=== PATIENT | female | born 1950 | race Caucasian/White ===

== ENCOUNTER → 2016-08-27 | Outpatient (CLI) | payer OTHER, BC ==
[~2016-08-27] MED LIST: ATR25 PO; RSTOPS OP; WARF2TAB PO
--- NOTE | 2016-08-27 14:28 | DIAGNOSTIC IMAGING REPORT ---
LEFT PELVIS UNILATERAL HIP 1 VIEW CLINICAL HISTORY: LEFT HIP PAIN S/P hip arthroplasty. COMPARISON STUDY: Pelvis and bilateral hips 11/18/2015. FINDINGS: Bilateral total hip arthroplasties. The hardware appears intact. A 6 mm focus of mild osteolysis within the mid left acetabulum. No fracture or dislocation within the pelvis or hips. IMPRESSION: 1. No fracture or dislocation within the pelvis or hips. 2. A 6 mm focus of mild osteolysis within the mid left acetabulum. This is new from the prior study and could represent foreign body reaction. Electronically signed by: Wagner Lai M.D. 08/27/2016 2:27 PM Dictated Date/Time: 08/27/2016 2:24 PM
== END ==
LOC: C.RDSM 14:09
PROVIDERS: ATTEND Physician Assistant
DX: Z47.1 Aftercare following joint replacement surgery (principal); Z96.642 Presence of left artificial hip joint

== ENCOUNTER → 2016-12-24 | Outpatient (CLI) | payer OTHER, BC ==
--- NOTE | 2016-12-24 15:58 | MAMMOGRAPHY REPORT ---
BILATERAL DIGITAL SCREENING MAMMOGRAM TOMOSYNTHESIS WITH CAD: 12/24/2016 CLINICAL HISTORY: Routine screening. TECHNIQUE: Breast tomosynthesis in addition to standard 2D mammography was performed. Current study was also evaluated with a Computer Aided Detection (CAD) system. COMPARISON: Comparison is made to exams dated: 12/24/2015 mammogram, 12/20/2014 mammogram, 12/06/2013 ma mmogram, 09/04/2009 mammogram - [facility], 09/21/2007, and 08/19/2006 mammogram - [facility]. BREAST COMPOSITION: The tissue of both breasts is heterogeneously dense, which may obscure small mas ses. FINDINGS: No suspicious masses, calcifications, or areas of architectural distortion are noted in ei ther breast. There has been no significant interval change compared to prior exams. Scattered bilater al benign-appearing calcifications are not significantly changed. IMPRESSION: ACR BI-RADS CATEGORY 2: BENIGN There is no mammographic evidence of malignancy. A 1 year screening mammogram is recommended. The pa tient will receive written notification of the results. Approximately 10% of breast cancers are not detected with mammography. A negative mammographic report should not delay biopsy if a clinically suggestive mass is present. Safia Mercedes M.D. ah/:12/24/2016 14:54:29 Workers Compensation Examiner: Keegan MOORE)([place]), [facility] letter sent: Normal 1/2 BI-RADS Code: ACR BI-RADS Category 2: Benign
== END | disposition home or self-care (01) ==
LOC: C.MAMM 10:30
PROVIDERS: ATTEND Family Medicine
DX: Z12.31 Encounter for screening mammogram for malignant neoplasm of breast (principal)

== ENCOUNTER → 2017-08-04 | Day surgery (SDC) | payer OTHER, BC ==
[2017-07-28 12:12] VITALS: Ht 165.1 cm; Wt 61.4 kg
[~2017-08-04] VITALS: Ht 165.1 cm; Wt 61.4 kg
[~2017-08-04] MED LIST changes: -ATR25 PO; +CYCL0.052 OP; +DIPH1TAB87 PO; +LIDOCAINE HCL 2% 2 ML VIAL (20MG/ML) ONE; +PROPOFOL IV EMULSION 10 MG/ML 20 ML VIAL ONE; -RSTOPS OP; -WARF2TAB PO
--- NOTE | 2017-08-04 13:13 | Endo History and Physical ---
History & Physical Date of Service: August 04, 2017. Chief Complaint: screening Referring Physician: Shell Kinney History of Present Illness 66 yo CF who presents for screening colonoscopy. Past Surgical History Hx Cardiac Surgery: No Hx Internal Defibrillator: No Hx Pacemaker: No Hx Abdominal Surgery: Yes (HYSTERECTOMY R OVARY) Hx of Implantable Prosthesis: No Hx Post-Op Nausea and Vomiting: Yes Hx Cancer Surgery: No Hx Thoracic Surgery: No Hx Orthopedic: Yes (R TSA, R/L THR -2011 [facility]) Hx Urinary Tract Surgery: No Family History None Social History Smoking Status: Former Smoker Hx Substance Use: No Hx Alcohol Use: Yes (1 BEER OR SCOTCH DAILY) Allergies Coded Allergies: Morphine (Verified Allergy, Severe, nausea/severe sedation/resp distress vs. arrest, 07/28/17) POLLEN (Verified Allergy, Unknown, ITCHY EYES EARS, 07/28/17) Codeine (Verified Adverse Reaction, Intermediate, NAUSEA, 07/28/17) Tramadol (Verified Adverse Reaction, Intermediate, NAUSEA SOMETIMES, ) Erythromycin (Verified Adverse Reaction, Unknown, INSOMNIA HYPER, 07/28/17) Penicillins (Verified Adverse Reaction, Unknown, VAGINITIS, 07/28/17) Current Medications Reported Home Medications Medications Dose Route/Sig Max Daily Dose Days Date Category Benadryl Allergy (Diphenhydramine Hcl) 25 Mg Tab 1 Tab PO BID PRN 07/28/17 Reported Restasis (Cyclosporine (Ophth)) 0.05 % Emu 1 Drops OP BID 30 07/28/17 Reported Vital Signs Weight (Kilograms): 61.36 Height (Feet): 5 Height (Inches): 5 Date Time Temp Pulse Resp B/P (MAP) Pulse Ox O2 Delivery O2 Flow Rate FiO2 08/04/17 13:04 36.4 87 20 120/73 (89) 97 Room Air Physical Exam General Appearance: WD/WN, no apparent distress Respiratory/Chest: Auscultation: breath sounds normal Cardiovascular: Heart Auscultation: RRR Abdomen: Bowel Sounds: normal Inspection & Palpation: soft, non-distended, no tenderness, guarding & rebound Assessment and Plan Assessment: 66 yo CF who presents for screening colonoscopy. Plan: Proceed with colonoscopy.
--- NOTE | 2017-08-04 14:06 | Discharge Instructions ---
Endoscopy Patient Instructions Date / Procedure(s) Performed August 04, 2017. Colonoscopy Allergy Information Coded Allergies: Morphine (Verified Allergy, Severe, nausea/severe sedation/resp distress vs. arrest, 07/28/17) POLLEN (Verified Allergy, Unknown, ITCHY EYES EARS, 07/28/17) Codeine (Verified Adverse Reaction, Intermediate, NAUSEA, 07/28/17) Tramadol (Verified Adverse Reaction, Intermediate, NAUSEA SOMETIMES, ) Erythromycin (Verified Adverse Reaction, Unknown, INSOMNIA HYPER, 07/28/17) Penicillins (Verified Adverse Reaction, Unknown, VAGINITIS, 07/28/17) Discharge Date / Findings August 04, 2017. Sigmoid colon polyp Diverticulosis Internal hemorrhoids Medication Instructions OK to resume all medications today as prescribed Reported Home Medications Medications Dose Route/Sig Max Daily Dose Days Date Category Benadryl Allergy (Diphenhydramine Hcl) 25 Mg Tab 1 Tab PO BID PRN 07/28/17 Reported Restasis (Cyclosporine (Ophth)) 0.05 % Emu 1 Drops OP BID 30 07/28/17 Reported Provider Instructions Activity Restrictions - No exercising or heavy lifting for 24 hours. - Do not drink alcohol the day of the procedure. - Do not drive a car or operate machinery until the day after the procedure. - Do not make any important decisions or sign important papers in 24 hours after the procedure. Following Day: - Return to full activity which may include returning to work/school. Diet Start your diet with liquids and light foods (jello, soup, juice, toast). Then eat your usual diet if not nauseated. Treatment For Common After Affects For mild abdominal pain, bloating, or excessive gas: - Rest - Eat lightly - Lie on right side Follow-Up Information Follow-up with Shell Kinney as scheduled Anesthesia Information What You Should Know You have had a procedure that required some medicine to reduce anxiety and discomfort. This treatment is called moderate sedation. After receiving the treatment, you may be sleepy, but you will be able to breathe on your own. The effects of the treatment may last for several hours. Follow these instructions along with Activity/Diet recommendations noted above: * Do NOT do anything where dizziness or clumsiness would be dangerous. * Rest quietly at home today, then you can be up and about tomorrow. * Have a responsible person stay with you the rest of today. * You may have had an I.V. today. If so, you may take the dressing off later today. Recommendations Call your doctor if: * Trouble breathing * Continuous vomiting for more than 24 hours * Temperature above 101 degrees * Severe abdominal pain or bloating * Pain not relieved by pain medicine ordered * There is increased drainage or redness from any incision * A large amount of rectal bleeding greater than 2-3 tablespoons. (If you had a polyp/s removed or have hemorrhoids, a small amount of blood - from the rectum is to be expected.) * You have any unanswered questions or concerns. IN THE EVENT OF A SERIOUS EMERGENCY, GO TO THE NEAREST EMERGENCY ROOM Your discharge instructions were prepared by provider Александр Montoya. Patient Instructions Signature Page Munira Whiting Patient (or Guardian) Signature/Date: I have read and understand the instructions given to me by my caregivers. Caregiver/RN/Doctor Signature/Date: The above-named patient and/or guardian has received patient instructions on this date. + Original Patient Signature Page (only) stays with chart. Please make copy for patient.
--- NOTE | 2017-08-04 14:17 | GI REPORT ---
Patient Name: Munira Whiting Procedure Date: 08/04/2017 1:22 PM Date of : 1950 Admit Type: Outpatient Age: 66 Gender: Female Attending MD: Александр Montoya DO Procedure: Colonoscopy Providers: Александр Montoya DO Referring MD: Shell Kinney Indications: Screening for colorectal malignant neoplasm Medicines: Monitored Anesthesia Care Complications: No immediate complications. Estimated Blood Loss: Estimated blood loss: none. Procedure: Pre-Anesthesia Assessment: - Prior to the procedure, a History and Physical was performed, and patient medications and allergies were reviewed. The patient's tolerance of previous anesthesia was also reviewed. The risks and benefits of the procedure and the sedation options and risks were discussed with the patient. All questions were answered, and informed consent was obtained. Prior Anticoagulants: The patient has taken no previous anticoagulant or antiplatelet agents. ASA Grade Assessment: II - A patient with mild systemic disease. After reviewing the risks and benefits, the patient was deemed in satisfactory condition to undergo the procedure. After I obtained informed consent, the scope was passed under direct vision. Throughout the procedure, the patient's blood pressure, pulse, and oxygen saturations were monitored continuously. The scope was introduced through the anus and advanced to the terminal ileum. The colonoscopy was performed without difficulty. The patient tolerated the procedure well. The quality of the bowel preparation was good. The terminal ileum, ileocecal valve, appendiceal orifice, and rectum were photographed. Findings: The perianal and digital rectal examinations were normal. A 5 mm polyp was found in the sigmoid colon. The polyp was sessile. The polyp was removed with a hot snare. Resection and retrieval were complete. Multiple small-mouthed diverticula were found in the sigmoid colon. Non-bleeding internal hemorrhoids were found during retroflexion. The hemorrhoids were small. Impression: - One 5 mm polyp in the sigmoid colon, removed with a hot snare. Resected and retrieved. - Diverticulosis in the sigmoid colon. - Non-bleeding internal hemorrhoids. Recommendation: - Resume previous diet. - Continue present medications. - Repeat colonoscopy for surveillance based on pathology results. - Return to primary care physician as previously scheduled. Александр Montoya DO 08/04/2017 2:16:57 PM This report has been signed electronically. Note Initiated On: 08/04/2017 1:22 PM Number of Addenda: 0 I attest to the content of the Intraoperative Record and orders documented therein, exceptions below {[id number]}
--- NOTE | 2017-08-04 14:28 | Anesthesiology Progress Note ---
Anesthesia Post Op Note Date & Time August 04, 2017 at 14:27 Vital Signs Vital Signs Past 12 Hours Date Time Temp Pulse Resp B/P (MAP) Pulse Ox O2 Delivery O2 Flow Rate FiO2 08/04/17 13:04 36.4 87 20 120/73 (89) 97 Room Air Notes Mental Status: alert / awake / arousable, participated in evaluation Pt Amnestic to Procedure: Yes Nausea / Vomiting: adequately controlled Pain: adequately controlled Airway Patency, RR, SpO2: stable & adequate BP & HR: stable & adequate Hydration State: stable & adequate Anesthetic Complications: no major complications apparent The patient is awake and her vitals are stable in recovery.
[2017-08-04 14:40] VITALS: BP 160/82; PULSE 79; O2SAT 98
== END | disposition home or self-care (01) ==
LOC: C.GI 12:42
PROVIDERS: ATTEND Internal Medicine
DX: Z12.11 Encounter for screening for malignant neoplasm of colon (principal); D12.5 Benign neoplasm of sigmoid colon; K57.30 Diverticulosis of large intestine without perforation or abscess without bleeding; K64.8 Other hemorrhoids; M19.90 Unspecified osteoarthritis, unspecified site; Z88.5 Allergy status to narcotic agent; Z88.0 Allergy status to penicillin; Z90.710 Acquired absence of both cervix and uterus; Z90.721 Acquired absence of ovaries, unilateral; Z96.641 Presence of right artificial hip joint; Z87.891 Personal history of nicotine dependence

== ENCOUNTER 2024-11-03 11:47 | Inpatient (IN) ==
[2024-11-03 13:45] LABS: Hematocrit (blood only) 37.2 % (37.0-47.0); Hemoglobin 13.2 g/dl (12.0-16.0); Immature Granulocytes # (auto) 0.08 K/uL (0.01-0.20); Immature Granulocytes % (auto) 0.8 %; Mean Corpuscular Hemoglobin 31.3 pg (25.0-34.0); Mean Corpuscular Volume 88.2 fL (80.0-100.0); Platelet Count 391 K/uL (130-400); RDW Standard Deviation 43.5 fL (36.4-46.3); Red Blood Count 4.22 M/uL (4.20-5.40); White Blood Count 10.07 K/ul (4.8-10.8)
[2024-11-03 14:04] LABS: Anion Gap 7.0 (3-11); Blood Urea Nitrogen 17.0 mg/dl (6-23); Calcium 9.5 mg/dl (8.6-10.3); Carbon Dioxide 28.0 mmol/L (21-32); Chloride 97.0 mmol/L (98-107); Creatinine Clr Calc Pharmacy 67.5 ml/min; Glucose 114.0 mg/dl (70-99(Fasting)); Potassium 4.0 mmol/L (3.5-5.1); Sodium 132.0 mmol/L (136-145)
--- NOTE | 2024-11-03 14:07 | XRay Report ---
XR hip LT 2V w pelvis CLINICAL HISTORY: previous pelvic fx, new L hip pain COMPARISON: 10/10/2024 FINDINGS: There is increased displacement at the right pubic rami fractures. No other fracture or di slocation seen. Prosthesis show no IMPRESSION: Increased displacement at the right pubic fractures. ACT 112: Negative or not required by law. Electronically signed by: William Taylor M.D. 11/03/2024 2:06 PM
--- NOTE | 2024-11-03 14:45 | Emergency Department Note ---
Impression & Plan Hip pain, Left hip pain, Back pain ED Provider Note NAME: AGNES GA AGE: 73 SEX: F : 1950 ARRIVES VIA: Ambulance INFORMANT: Patient, ED PROVIDER(S): Marcus Gandhi MD CHIEF COMPLAINT: Left hip pain HPI: This is a 73-year-old female seen for left hip pain. Patient states that she had a fall about 1 month ago and had a right pelvic fracture. She notes she started doing physical therapy and had more left-sided pain at this time. It was somewhat into her back going down her leg. She had seen orthopedic surgery again who ordered lumbar x-rays and started on prednisone, tramadol and cyclobenzaprine. She was diagnosed with sciatica. She states her pain is worse and she is having trouble walking. She reports no further falls. ROS: See above HPI for pertinent positives & negatives. A total of 10 systems reviewed and were otherwise negative. PAST MEDICAL HISTORY: See Below PAST SURGICAL HISTORY: See Below FAMILY HISTORY: See Below SOCIAL HISTORY: See Below HOME MEDICATIONS: See Below ALLERGIES: See Below VITALS: See Below PHYSICAL EXAMINATION: General: resting comfortably in no acute distress Head: Normocephalic and atraumatic Eyes: Normal inspection, extraocular muscles intact Ear, nose, throat: Normal external exam Neck: Normal range of motion Respiratory: lungs clear to auscultation bilaterally Cardiovascular: Regular rate/rhythm, no murmur GI: soft, nontender, no guarding or rebound Extremities: nontender, moves all extremities Neuro: The patient awake and alert, appropriately conversive, no focal deficits, symmetric faces Skin: Warm, dry, and intact MEDICAL DECISION MAKING: This is a 73-year-old female present for left hip pain. Patient has previous fall with right pelvic fracture, now with left-sided hip pain. Right pelvis/hip is a asymptomatic at this time. - Hip x-ray reveals increased displacement of right pubic fractures - Patient diagnosed with sciatica by orthopedic surgery. Having difficulty walking as result of this. No signs of cauda equina clinically. No saddle anesthesia, motor weakness, urinary or bowel incontinence. - At this patient patient have difficulty walking, lives alone and has two-story to her house. Will admit the patient for further SNF facility. - Care discussed with admitting team for admission Differential diagnosis: Sciatica, cauda equina, pelvic fracture, hip fracture Independent History obtained from: Sister [facility] interpreted by me: ECG: None Cardiac Monitoring: An order was placed for continuous cardiac monitoring. The monitor shows a rate of 83 with sinus rhythm. Past Med/Surg History Problem List (Updated 11/03/24 @ 19:57 by Marcus Gandhi MD) Back pain (Acute) Hip pain (Acute) Hypertension Anxiety Left hip pain (Acute) DJD (degenerative joint disease) of hip Social History Smoking Status: Unknown if ever smoked Preferred Language: Urdu Feels Safe at Home: Yes Allergies Allergies Allergy/AdvReac Type Severity Reaction Status Date / Time morphine Allergy Severe nausea/severe Verified 07/28/17 12:10 sedation/resp distress vs. arrest pollen extracts Allergy Unknown ITCHY EYES Verified 07/28/17 12:10 EARS codeine AdvReac Intermediate NAUSEA Verified 07/28/17 12:10 tramadol AdvReac Intermediate NAUSEA Verified 07/28/17 12:10 SOMETIMES erythromycin base AdvReac Unknown INSOMNIA Verified 07/28/17 12:10 HYPER Penicillins AdvReac Unknown VAGINITIS Verified 07/28/17 12:10 Home Meds Home Medications Medication Instructions Recorded Confirmed diphenhydramine HCl 25 mg tablet 1 tab PO BID PRN Other ##0 07/28/17 11/03/24 (Benadryl Allergy) [place] 3 2,400 mcg PO DAILY 11/03/24 11/03/24 atorvastatin 20 mg tablet 20 mg PO DAILY 11/03/24 11/03/24 buspirone 10 mg tablet 10 mg PO BID PRN Anxiety 11/03/24 11/03/24 cholecalciferol (vitamin D3) 50 50 mcg PO DAILY 11/03/24 11/03/24 mcg (2,000 unit) tablet (Vitamin D3) cyclobenzaprine 5 mg tablet 5 mg PO TID PRN Muscle Spasm 11/03/24 11/03/24 hydroxyzine HCl 25 mg tablet 25 mg PO .Q6-8H PRN Other 11/03/24 11/03/24 ibuprofen 200 mg tablet (Advil) 200 mg PO Q6H PRN Pain 11/03/24 11/03/24 losartan 50 mg tablet 50 mg PO DAILY 11/03/24 11/03/24 magnesium 250 mg tablet 250 mg PO DAILY 08/01/25 08/01/25 methylprednisolone 4 mg tablets in 4 mg PO DIRECTED 11/03/24 11/03/24 a dose pack tolterodine 2 mg capsule,extended 2 mg PO DAILY 11/03/24 11/03/24 release 24 hr tramadol 50 mg tablet 50 mg PO Q4H PRN Pain 11/03/24 11/03/24 Results & Data (ED) Vital Signs Vital Signs - 24 hr 11/03/24 12:22 11/03/24 12:22 11/03/24 12:22 Temperature 36.7 C Temperature Source Oral Pulse Rate 98 H Pulse Rate [Right Finger] 98 H Pulse Rhythm Regular Pulse Rhythm [Right Finger] Regular Pulse Strength Normal Pulse Strength [Right Finger] Normal Respiratory Rate 13 13 Respiratory Effort / Characteristics Non-Labored Non-Labored Respiratory Depth Normal Normal Respiratory Pattern Regular Regular Blood Pressure 171/110 H Blood Pressure [Right Arm] 171/110 H Blood Pressure Mean 130 Blood Pressure Mean [Right Arm] 130 Blood Pressure Position Lying Blood Pressure Position [Right Arm] Lying Pulse Oximetry 93 93 93 Oxygen Delivery Method Room Air Room Air Room Air Sepsis Recent Fever Within 48 Hours No Sepsis New/Unexplained Change in Mental Status N/A Sepsis Action Taken by Nursing No Action Required 11/03/24 12:22 11/03/24 14:23 11/03/24 16:17 Temperature Temperature Source Pulse Rate 89 Pulse Rate [Right Finger] 90 88 Pulse Rhythm Pulse Rhythm [Right Finger] Regular Regular Pulse Strength Pulse Strength [Right Finger] Normal Normal Respiratory Rate 16 16 Respiratory Effort / Characteristics Non-Labored Non-Labored Respiratory Depth Normal Normal Respiratory Pattern Regular Regular Blood Pressure Blood Pressure [Right Arm] 167/99 H 142/98 H Blood Pressure Mean Blood Pressure Mean [Right Arm] 121 112 Blood Pressure Position Blood Pressure Position [Right Arm] Lying Pulse Oximetry 95 97 Oxygen Delivery Method Room Air Room Air Sepsis Recent Fever Within 48 Hours Sepsis New/Unexplained Change in Mental Status Sepsis Action Taken by Nursing 11/03/24 16:23 Temperature Temperature Source Pulse Rate 105 H Pulse Rate [Right Finger] Pulse Rhythm Pulse Rhythm [Right Finger] Pulse Strength Pulse Strength [Right Finger] Respiratory Rate Respiratory Effort / Characteristics Respiratory Depth Respiratory Pattern Blood Pressure Blood Pressure [Right Arm] Blood Pressure Mean Blood Pressure Mean [Right Arm] Blood Pressure Position Blood Pressure Position [Right Arm] Pulse Oximetry Oxygen Delivery Method Sepsis Recent Fever Within 48 Hours Sepsis New/Unexplained Change in Mental Status Sepsis Action Taken by Nursing Laboratory Data 11/03/24 13:24 11/03/24 13:24 Lab Results 11/03/24 Range/Units 13:24 WBC 10.07 (4.8-10.8) K/ul RBC 4.22 (4.20-5.40) M/uL Hgb 13.2 (12.0-16.0) g/dl Hct 37.2 (37.0-47.0) % MCV 88.2 (80.0-100.0) fL MCH 31.3 (25.0-34.0) pg MCHC 35.5 (32.0-36.0) g/dL RDW Std Deviation 43.5 (36.4-46.3) fL RDW Coeff of Kim 13.4 (11.5-14.5) % Plt Count 391 (130-400) K/uL MPV 9.2 L (9.4-12.4) fL Immature Gran % (Auto) 0.8 % Neut % (Auto) 89.9 % Lymph % (Auto) 6.8 % Morrill % (Auto) 2.2 % Eos % (Auto) 0.0 % Baso % (Auto) 0.3 % Neut # (Auto) 9.06 H (1.40-6.50) K/uL Lymph # (Auto) 0.68 L (1.20-3.40) K/uL Morrill # (Auto) 0.22 (0.11-0.59) K/uL Eos # (Auto) 0.00 (0.00-0.50) K/uL Baso # (Auto) 0.03 (0.00-0.20) K/uL Immature Gran # (Auto) 0.08 (0.01-0.20) K/uL Sodium 132 L (136-145) mmol/L Potassium 4.0 (3.5-5.1) mmol/L Chloride 97 L (98-107) mmol/L Carbon Dioxide 28 (21-32) mmol/L Anion Gap 7 (3-11) BUN 17 (6-23) mg/dl Creatinine 0.68 (0.6-1.2) mg/dl Est Cr Clr Drug Dosing 67.5 ml/min eGFR 91.33 BUN/Creatinine Ratio 25.0 H (10-20) Glucose 114 H (70-99(Fasting)) mg/dl Calcium 9.5 (8.6-10.3) mg/dl Imaging Data Radiologist's Impression: Hip/Pelvis X-Ray 11/03/24 12:43 XR hip LT 2V w pelvis CLINICAL HISTORY: previous pelvic fx, new L hip pain COMPARISON: 10/10/2024 FINDINGS: There is increased displacement at the right pubic rami fractures. No other fracture or dislocation seen. Prosthesis show no IMPRESSION: Increased displacement at the right pubic fractures. ACT 112: Negative or not required by law. Electronically signed by: William Taylor M.D. 11/03/2024 2:06 PM Discharge Plan Visit Data Chief Complaint: Hip Pain Stated Complaint: L HIP PAIN ED Provider: Marcus Gandhi Discharge Problem: Hip pain, Left hip pain, Back pain Patient Disposition: Admitted As Inpatient Condition: Fair Discharge Instructions Interventions: ED Discharge Assessment Last Done: 11/03/24 19:50
--- NOTE | 2024-11-03 16:28 | History & Physical Report ---
Date of Service November 03, 2024 Assessment & Plan (1) Left hip pain: (2) Anxiety: (3) Hypertension: Plan Pt is a very pleasant 73 yo female with a past med hx of fall 1 mo ago with R pelvis fracture managed conservatively, HTN, and anxiety who presents to the hospital on 11/03 for L hip pain making ambulation at home progressively more difficult. #L hip pain - has R pelvis fracture, notably more displaced on XR on admission but ER consulted ortho who had no further recs for this at this time, but not having much in terms of R hip discomfort other than when against opposed flexion - distribution of pain today lateral leg seems possibly more consistent with IT band, will defer further steriods at this time since pt did not find them helpful, will do topical Voltaren to the area scheduled - will tighten pain control; tylenol 1000mg scheduled TID, ibuprofen 600mg QID - will do opioids for breakthrough pain; will start at 2.5 mg oxycodone q4h to start given hx of intolerances to other opioids, can titrate up as tolerated by the patient for pain control - PT/OT #Anxiety; continue home meds #HTN: continue home meds VTE ppx: lovenox History of Present Illness Chief Complaint: L hip pain Primary Care Provider: Shell Kinney Pt is a very pleasant 73 yo female with a past med hx of fall 1 mo ago with R pelvis fracture managed conservatively, HTN, and anxiety who presents to the hospital on 11/03 for L hip pain making ambulation at home progressively more difficult. Pt seen at bedside with family member present. Pt states that 4 weeks ago she sustained a R pelvis fracture after a fall when she was out with her dog and another dog came up behind them and tripped them. No LOC with that episode, no presyncopal symptoms. Pt states she really had minimal if any R hip pain with the injury and so it was being treated conservatively. She states that she started with PT about a week and a half ago and about 5 days after started to develop L hip pain, particularly when getting up from sitting or with hip flexion. She states she was given tramadol, which helped for 2-3 hours when kirsten en with ibuprofen, prednisone which did not help, and Flexeril which did not provide relief for her. She states that she lives alone and does have stairs but that most things she needs are on the first floor, although she states she has actually done better with stairs than with walking around. Pt states that the pain is outer L hip and extends down to her outer left knee at times, no radiation into the buttock or back per pt today. No further falls, here due to continued issues with mobility due to persistent L hip pain. Allergies Allergy/AdvReac Type Severity Reaction Status Date / Time morphine Allergy Severe nausea/severe Verified 07/28/17 12:10 sedation/resp distress vs. arrest pollen extracts Allergy Unknown ITCHY EYES Verified 07/28/17 12:10 EARS codeine AdvReac Intermediate NAUSEA Verified 07/28/17 12:10 tramadol AdvReac Intermediate NAUSEA Verified 07/28/17 12:10 SOMETIMES erythromycin base AdvReac Unknown INSOMNIA Verified 07/28/17 12:10 HYPER Penicillins AdvReac Unknown VAGINITIS Verified 07/28/17 12:10 Home Medications Medication Instructions Recorded Confirmed Type diphenhydramine HCl 25 mg tablet 1 tab PO BID PRN Other ##0 07/28/17 11/03/24 History (Benadryl Allergy) Palmer 3 2,400 mcg PO DAILY 11/03/24 11/03/24 History atorvastatin 20 mg tablet 20 mg PO DAILY 11/03/24 11/03/24 History buspirone 10 mg tablet 10 mg PO BID PRN Anxiety 11/03/24 11/03/24 History cholecalciferol (vitamin D3) 50 50 mcg PO DAILY 11/03/24 11/03/24 History mcg (2,000 unit) tablet (Vitamin D3) cyclobenzaprine 5 mg tablet 5 mg PO TID PRN Muscle Spasm 11/03/24 11/03/24 History hydroxyzine HCl 25 mg tablet 25 mg PO .Q6-8H PRN Other 11/03/24 11/03/24 History ibuprofen 200 mg tablet (Advil) 200 mg PO Q6H PRN Pain 11/03/24 11/03/24 History losartan 50 mg tablet 50 mg PO DAILY 11/03/24 11/03/24 History magnesium 250 mg tablet 250 mg PO DAILY 11/03/24 11/03/24 History methylprednisolone 4 mg tablets in 4 mg PO DIRECTED 11/03/24 11/03/24 History a dose pack tolterodine 2 mg capsule,extended 2 mg PO DAILY 11/03/24 11/03/24 History release 24 hr tramadol 50 mg tablet 50 mg PO Q4H PRN Pain 11/03/24 11/03/24 History Past Med/Surg History Problem List (Updated 11/03/24 @ 16:57 by Zayra Michelle DO) Hypertension Anxiety Left hip pain DJD (degenerative joint disease) of hip Social History Smoking Status: Unknown if ever smoked Preferred Language: Chinese Feels Safe at Home: Yes Review of Systems Review of Systems: Per HPI. Physical Exam Physical Exam: General: Alert and oriented, very pleasant, no acute distress, HEENT: Normocephalic, moist oral mucosa, Cardio: Regular rate and rhythm, Resp: Lungs clear to auscultation b/l, no wheezes or rhonchi, GI: Soft and nontender Skin: Warm, pink, dry, Ext: some mild outer R hip pain noted with R hip flexion, profound L hip pain with opposed L hip flexion Results & Data Results & Data Vital Signs (Past 12 Hours) Vital Signs Temp Pulse Pulse Resp BP BP Pulse Ox 11/03/24 16:23 105 H 11/03/24 16:17 88 16 142/98 H 97 11/03/24 14:23 90 16 167/99 H 95 11/03/24 12:22 89 11/03/24 12:22 93 11/03/24 12:22 98 H 13 171/110 H 93 11/03/24 12:22 36.7 C 98 H 13 171/110 H 93 O2 Del Method 11/03/24 16:23 11/03/24 16:17 Room Air 11/03/24 14:23 Room Air 11/03/24 12:22 11/03/24 12:22 Room Air 11/03/24 12:22 Room Air 11/03/24 12:22 Room Air Supervising Physician Co-Signing Physician Notes I personally examined the patient and verified all mead points of history and exam, discussed case, and agree with decision making with Dr Michelle pelvic fracture - was doing OK at home - but while pelvic fracture was on the R, now L hip pain - lateral and then down back of leg some. pain got to be too much to walk well / care for herself at home vitals noted nad heent nc at mmm breathing unlabored no accessory muscles good effort skin no rashes no pallor or icterus. msk (+) tenderness posterior to L greater trochanter/region of piriformis high tone/tender hip pain/back pain -muscular - piriformis focused. almost certainly due to compensated for "bad side" as she's recovering from pelvic fracture -could not really comfortably move well - deferred OMT for today, hopefully can treat tomorrow -voltaren gel to piriformis region QID -mag 4g IV as muscle relaxant -pain control as above -PT/OT eval and treat otherwise as above Resident Activity Tracking Resident Involvement: Resident Care Provided Care Provided: Adult Hospital Medicine
--- NOTE | 2024-11-03 17:14 | Billing Data ---
Date of Service November 03, 2024 Coding Level of Care Code 76321 INT INP/OBS CARE
[2024-11-03] MEDS ORDERED: ONDANSETRON INJ 2 MG/ML 2 ML VIAL IV PRN (19:50)
[2024-11-03] MEDS ORDERED: POLYETHYLENE (MIRALAX) 17 GM PACK PO PRN (19:50)
[2024-11-03] MEDS: ACETAMINOPHEN 500 MG TAB PO SCH (20:37)
[2024-11-03] MEDS: IBUPROFEN 600 MG TAB PO SCH (20:38)
[2024-11-03] MEDS: DICLOFENAC SOD 1% GEL 100 GM TUBE EXT SCH (20:38)
[2024-11-03 20:55] LABS: Magnesium 2.4 mg/dl (1.7-2.4)
[2024-11-03] MEDS: MAGNESIUM SULFATE / D5W 1 GM/100 ML BAG IV SCH (23:57)
[2024-11-03] MEDS: ENOXAPARIN INJ 40 MG/0.4 ML SYR SQ SCH (23:57)
[2024-11-04] MEDS: busPIRone 5 MG TAB PO PRN (07:35)
[2024-11-04] MEDS: OXYBUTYNIN CHLORIDE XL 5 MG TABCR PO SCH (07:35)
[2024-11-04] MEDS: ATORVASTATIN 20 MG TAB PO SCH (07:36)
[2024-11-04] MEDS: LOSARTAN POTASSIUM 50 MG TAB PO SCH (07:36)
--- NOTE | 2024-11-04 08:21 | Hospitalist Progress Note ---
Date of Service November 04, 2024 Assessment & Plan (1) Left hip pain: (2) Hyponatremia: (3) Anxiety: (4) Hypertension: (5) Constipation: Plan Pt is a very pleasant 73 yo female with a past med hx of fall 1 mo ago with R pelvis fracture managed conservatively, HTN, and anxiety who presents to the hospital on 11/03 for L hip pain making ambulation at home progressively more difficult. #L hip pain | ambulatory dysfunction Patient does have a known right pubic fracture from a fall on September 16 Hip and pelvic x-ray on arrival revealed increased displacement at the right pubic fracture ED consulted ortho on arrival who had no further recs for this at this time, but not having much in terms of R hip discomfort other than when resistance applied against a post flexion Distribution of pain lateral left leg; seems possibly more consistent with IT band Steroids deferred at this time since pt did not find them helpful Topical Voltaren gel to the area scheduled Pain control regimen as follows: Tylenol 1000mg scheduled TID Ibuprofen 600mg QID Opioids for breakthrough pain; will start at oxycodone 2.5 mg p.o. q4h to start given hx of intolerances to other opioids, can titrate up as tolerated by the patient for pain control PT/OT evaluations appreciated Awaiting evals; patient does report she is open to rehab if needed Fall precautions #Hyponatremia NA 131 on 11/04; patient is also hypochloremic Euvolemic on physical exam Suspect secondary to dehydration NSS 500 mL IV at 80mL/hr x 1 Trend BMP #Constipation Patient reports that has been too painful to sit on the toilet due to her left hip pain No BM in several days MiraLAX daily PRN Monitor for BMs #H/o right hip replacement | h/o left hip replacement Noted #Anxiety Continue hydroxyzine, buspirone PRN #HTN Continue losartan #Bladder spasms Normally on tolterodine Continue oxybutynin inpatient #HLD Continue atorvastatin Disposition: Continued stay on MedSurg pending PT/OT evaluations VTE ppx: Lovenox 40 mg SQ q24h Admission and Anticipated Discharge Date Admission Date: November 03, 2024 Supervising Physician Co-Signing Physician Notes Attending Attestation: Chart reviewed, care plan d/w GEOVANNY Chung. I agree w/ the mead components of his documentation. Consider more advanced imaging of the pelvis and/or L-spine if pain is refractory. Leroy Padgett MD Subjective Mrs. Whiting reports she enjoyed her breakfast this morning, but had difficulty sleeping last night as she was awoken every hour or so by hospital staff. She reports 0 out of 10 pain in her left hip while she is at rest. She only has reproducible pain when she sits up or tries to stand on her left leg. When she does this, she has pain shooting down her left hamstrings. She reports it is significantly painful to walk, especially in the mornings. Patient lives alone. She reports over the past week, she could not get out of bed on certain days. She has been taking 3 Advil tablets TID as well as 50 mg of tramadol daily for the pain, which does help at home. Additionally, she has not had a bowel movement in several days because it is "too painful" to sit on the toilet and her left hip. Patient denies any falls since her original fall back on September 16 when she tripped over her dog. After this original fall, she did not use ambulatory assist devices x 2 weeks, but then went into see her doctor and was diagnosed with a right pelvic fracture; since that time she has used a cane. Patient does have history of bilateral hip replacements. No recent injuries to her left hip. She is amenable to rehab if needed. ROS: Patient endorses constipation, and left hip pain with movements and standing. Patient denies fever, chills, night sweats, chest pain, SOB, cough, abdominal pain, N/V/D, numbness or tingling going down the legs, or changes in urinary habits. Review of Systems Review of Systems: See HPI above Physical Exam Physical Exam: General: no acute distress; pleasant affect; frail appearing; well-nourished; cooperative; SpO2 97% on RA HEENT: normocephalic, atraumatic; no scleral icterus; PERRLA; vision intact; hard of hearing (hearing aids reportedly out of battery) Neck: supple; no lymphadenopathy; trachea midline Skin: warm, dry without signs of tenting; no cyanosis; no rashes, bruising, lesions, or erythema noted CV: chest wall NTP; RRR; pulses intact and symmetric at radial, DP, and PT Lungs: no acute respiratory distress; symmetrical chest wall expansion; clear breath sounds across all lung alcala w/o adventitious sounds; no wheezing ABD: Soft, NTP; BS present; no rebound/guarding; no distention MSK: no tics or fasciculations; no edema noted in the LEs b/l, nonerythematous; left hamstrings are TTP/tight; no rashes or bruising appreciated on the left hip; straight leg lift in the left leg does produce mild pain in the back and hamstring; patient demonstrates ability to wiggle toes bilaterally Neuro: A&Ox3; normal mood and affect; fluent speech; no focal deficits; sensation intact and symmetric in lower extremities bilaterally assessed via light touch Results & Data Results & Data Vital Signs (Past 12 Hours) Vital Signs Temp Pulse Resp BP Pulse Ox O2 Del Method 11/04/24 07:16 36.6 C 69 16 137/80 97 Room Air 11/04/24 01:00 164/90 H 11/03/24 23:00 Room Air 11/03/24 23:00 36.8 C 81 18 191/100 H 94 Room Air 11/03/24 22:05 Room Air 11/03/24 22:00 78 18 171/92 H 97 Room Air PG Care Time/CCT Total # of Minutes Spent Total Time Spent with Patient: Total time spent is greater than 50% in coordination of care (as documented) at patient's floor/unit and/or counseling patient: [place] [address] SUB INP/OBS CARE 2/35MIN Patient Type New Medical Decision Making Moderate Complexity Diagnoses Left hip pain M25.552 Hyponatremia E87.1 Anxiety F41.9 Hypertension I10 Constipation K59.00
[2024-11-04 09:03] LABS: Hematocrit (blood only) 35.7 % (37.0-47.0); Hemoglobin 12.4 g/dl (12.0-16.0); Mean Corpuscular Hemoglobin 30.5 pg (25.0-34.0); Mean Corpuscular Volume 87.7 fL (80.0-100.0); Platelet Count 352 K/uL (130-400); RDW Standard Deviation 43.3 fL (36.4-46.3); Red Blood Count 4.07 M/uL (4.20-5.40); White Blood Count 5.96 K/ul (4.8-10.8)
[2024-11-04 09:19] LABS: Anion Gap 5.0 (3-11); Blood Urea Nitrogen 11.0 mg/dl (6-23); Calcium 8.7 mg/dl (8.6-10.3); Carbon Dioxide 30.0 mmol/L (21-32); Chloride 96.0 mmol/L (98-107); Creatinine Clr Calc Pharmacy 70.6 ml/min; Glucose 129.0 mg/dl (70-99(Fasting)); Potassium 3.7 mmol/L (3.5-5.1); Sodium 131.0 mmol/L (136-145)
[2024-11-04] MEDS: SODIUM CHLORIDE 0.9% 500 ML IV SCH (11:06)
[2024-11-04] MEDS: MAGNESIUM OXIDE 400 MG TAB PO SCH (11:13)
[2024-11-04] MEDS: MELATONIN 3 MG TAB PO PRN (21:10)
[2024-11-05 06:32] LABS: Anion Gap 6.0 (3-11); Blood Urea Nitrogen 12.0 mg/dl (6-23); Calcium 8.8 mg/dl (8.6-10.3); Carbon Dioxide 29.0 mmol/L (21-32); Chloride 99.0 mmol/L (98-107); Creatinine Clr Calc Pharmacy 70.6 ml/min; Glucose 98.0 mg/dl (70-99(Fasting)); Potassium 4.1 mmol/L (3.5-5.1); Sodium 134.0 mmol/L (136-145)
--- NOTE | 2024-11-05 08:16 | Hospitalist Progress Note ---
Date of Service November 05, 2024 Assessment & Plan (1) Left hip pain: (2) Hyponatremia: (3) Anxiety: (4) Hypertension: (5) Constipation: (6) Pubic bone fracture: Plan Pt is a very pleasant 73 yo female with a past med hx of fall 1 mo ago with R pelvis fracture managed conservatively, HTN, and anxiety who presents to the hospital on 11/03 for L hip pain making ambulation at home progressively more difficult. #L hip pain | ambulatory dysfunction | ? piriformis syndrome Patient does have a known right pubic fracture from a fall on September 16 Hip and pelvic x-ray on arrival revealed increased displacement at the right pubic fracture ED consulted ortho on arrival; no further recs at this time Not having much in terms of R hip discomfort other than when resistance applied against a post flexion Suspect this is an over-exertion injury, with patient compensating with her left leg Distribution of pain lateral left leg; seems possibly more consistent with IT band However, patient did exhibit "point tenderness" at the piriformis on arrival S/p magnesium sulfate x 4 g IV on 11/03 Additional magnesium sulfate 1 g IV x 1 on 11/05 Steroids deferred at this time since pt did not find them helpful Patient reported that her pain regimen was not working on 11/05; reports that tramadol was helping at home Ibuprofen 600 mg QID - discontinued Protonix 40 mg p.o. QAM for GI PPx Oxycodone 2.5 mg p.o. - discontinued; note: Patient reports poor reaction to them on the evening of 11/04 (confusion and insomnia) New pain regimen: Tylenol 1000mg p.o. scheduled TID Tramadol 50 mg p.o. scheduled TID Topical Voltaren gel application QID PT/OT evaluations appreciated PT initial eval on 11/04 - can not rec d/c until patient's pain is under control & she is able to get up and move around Fall precautions #Hyponatremia - improving Mild; Na trend 132 -> 134 S/p NSS 500 mL IV x 1 Clinically euvolemic on physical exam Monitor PRN #Constipation - resolved Patient reports that has been too painful to sit on the toilet due to her left hip pain BM reported on 11/05 MiraLAX daily PRN Monitor #H/o right hip replacement | h/o left hip replacement Noted #Anxiety | depression Continue hydroxyzine, buspirone PRN #HTN Continue losartan #Bladder spasms Normally on tolterodine Continue oxybutynin inpatient #HLD Continue atorvastatin Disposition: Continued stay on MedSurg VTE ppx: Lovenox 40 mg SQ q24h Admission and Anticipated Discharge Date Admission Date: November 03, 2024 Supervising Physician Co-Signing Physician Notes Attending Attestation: Chart reviewed, care plan d/w PA Wagner Chung. I agree w/ the maed components of his documentation with the following addition - -right pubic fractures Consider more advanced imaging of the pelvis and/or L-spine if pain is refractory. Check 25-OH vit D level. Leroy Padgett MD Subjective Mrs. Whiting reports she is feeling "depressed" this morning. She is struggling with the fact that she no longer has her independence. She also reports that she misses her dog (a yellow lab named Breanna); her friend Jose C is currently watching her dog, but she feels that Jose C will need to continue to care for Breanna after she leaves the hospital. Patient does not have any pain in her leg at rest, but is still having difficulty moving, and was unable to get out of bed yesterday. She did have a BM last night on the bedpan. However, she also had 1 episode of pain in her left hamstrings while trying to sleep around midnight, and was given oxycodone; this led to confusion overnight and insomnia (patient woke up at 4 AM). Patient denies any radicular symptoms; no numbness or tingli ng going down the legs; no lower back pain. ROS: Patient endorses left hamstring pain with movements. Patient denies fever, chills, night sweats, chest pain, SOB, cough, abdominal pain, N/V/D, or numbness or tingling in the legs. Review of Systems Review of Systems: See HPI above Physical Exam Physical Exam: General: Patient is feeling anxious/depressed this morning, and is crying in bed on arrival; sister at bedside; frail appearing; well-nourished; cooperative; SpO2 94% on RA HEENT: normocephalic, atraumatic; no scleral icterus; PERRLA; vision intact; hard of hearing Neck: supple; no lymphadenopathy; trachea midline Skin: warm, dry without signs of tenting; no cyanosis; no rashes, bruising, lesions, or erythema noted CV: chest wall NTP; RRR; pulses intact and symmetric at radial, DP, and PT Lungs: no acute respiratory distress; symmetrical chest wall expansion; clear breath sounds across all lung alcala w/o adventitious sounds; no wheezing ABD: Soft, NTP; BS present; no rebound/guarding; no distention Back: Upper spine NTP; lower spine/sacrum are NTP MSK: no tics or fasciculations; no edema noted in the LEs b/l, nonerythematous; left hamstrings are TTP/tight; piriformis/gluteal muscles are NTP; no rashes or bruising appreciated on the left hip; negative right straight leg lift; positive left leg straight lift with pain reproducible at the left hip; patient demonstrates ability to wiggle toes bilaterally; 4/5 plantar/dorsiflexion in the left foot, when compared to 5/5 plantar/dorsiflexion in the right foot Neuro: A&Ox3; normal mood and affect; fluent speech; no focal deficits; se nsation intact and symmetric in lower extremities bilaterally assessed via light touch Results & Data Results & Data Vital Signs (Past 12 Hours) Vital Signs Temp Pulse Resp BP Pulse Ox O2 Del Method 11/05/24 07:26 36.4 C L 67 17 153/88 H 94 Room Air 11/04/24 23:00 36.5 C 68 18 164/94 H 93 Room Air PG Care Time/CCT Total # of Minutes Spent Total Time Spent with Patient: Total time spent is greater than 50% in coordination of care (as documented) at patient's floor/unit and/or counseling patient: Coding [place] [address] SUB INP/OBS CARE 2/35MIN Patient Type Established Medical Decision Making Moderate Complexity Diagnoses Left hip pain M25.552 Hyponatremia E87.1 Anxiety F41.9 Hypertension I10 Constipation K59.00 Pubic bone fracture S32.509A
[2024-11-05] MEDS: MAGNESIUM SULFATE / D5W 1 GM/100 ML BAG IV ONE (11:34)
[2024-11-05] MEDS: busPIRone 5 MG TAB PO STA (11:34)
[2024-11-05] MEDS: CYCLOBENZAPRINE HCL 5 MG TAB PO PRN (17:00)
[2024-11-06 07:45] LABS: Anion Gap 4.0 (3-11); Blood Urea Nitrogen 15.0 mg/dl (6-23); Calcium 8.6 mg/dl (8.6-10.3); Carbon Dioxide 29.0 mmol/L (21-32); Chloride 101.0 mmol/L (98-107); Creatinine Clr Calc Pharmacy 71.7 ml/min; Glucose 93.0 mg/dl (70-99(Fasting)); Potassium 3.8 mmol/L (3.5-5.1); Sodium 134.0 mmol/L (136-145)
--- NOTE | 2024-11-06 10:56 | CT Scan Report ---
CT hip LT wo con HISTORY: 73 years-old Female left hip/pelvic pain acute left-sided hip and pelvic pain without repor micheal trauma. COMPARISON: CT pelvis of same day, pelvis and hip radiographs 11/03/2024 TECHNIQUE: Multiple axial CT images of the left hip were obtained without IV contrast. A dose lowerin g technique was used consistent with the principals of GIGI. FINDINGS: Demineralized appearance of the bones. Unremarkable appearance of the left hip arthroplasty without e vidence of hardware complication. No acute fracture or dislocation. No suspicious bone lesions. Nonsp ecific urinary bladder wall thickening. Moderate rectal fecal retention. No lymphadenopathy. Unremark able appearance of the musculature. Please refer to the same day CT pelvis for discussion of the righ t-sided pelvic ring fractures. Minimal cortical angulation of the inferior left pubic ramus is likely chronic. IMPRESSION: 1. No acute fracture or dislocation. 2. Unremarkable appearance of the left hip arthroplasty. ACT 112: Negative or not required by law. The above report was generated using voice recognition software. It may contain grammatical, syntax o r spelling errors. Electronically signed by: Yariel Fernandez M.D. 11/06/2024 10:54 AM
--- NOTE | 2024-11-06 13:40 | Hospitalist Progress Note ---
"Date of Service November 06, 2024 Assessment & Plan (1) Left hip pain: (2) Hyponatremia: (3) Anxiety: (4) Hypertension: (5) Constipation: (6) Pubic bone fracture: Plan Pt is a very pleasant 73 yo female with a past med hx of fall 1 mo ago with R pelvis fracture managed conservatively, HTN, and anxiety who presents to the hospital on 11/03 for L hip pain making ambulation at home progressively more difficult. #L hip pain | ambulatory dysfunction Patient does have a known right pubic fracture from a fall on September 16 Hip and pelvic x-ray on arrival revealed increased displacement at the right pubic fracture Left hip/pelvic CT: no acute fx or dislocation, unremarkable appearance of left hip arthroplasty. Currently on Tylenol 1000mg TID + Tramadol 50mg PO TID + Voltarent gel QID. PT/OT evaluations - unable to stand due to 10/10 pain. Steroids d/c since they were not helpful. Ibuprofen d/c since not helpful. Pain management consulted, appreciate recommendations. #Hyponatremia - improving Mild; Na trend 132 -> 134 S/p NSS 500 mL IV x 1 Clinically euvolemic on physical exam Monitor PRN #Constipation - resolved Patient reports that has been too painful to sit on the toilet due to her left hip pain BM reported on 11/05 MiraLAX daily PRN Monitor #H/o right hip replacement | h/o left hip replacement Noted #Anxiety | depression Continue hydroxyzine, buspirone PRN #HTN Continue losartan #Bladder spasms Normally on tolterodine Continue oxybutynin inpatient #HLD Continue atorvastatin Disposition: Continued stay on MedSurg VTE ppx: Lovenox 40 mg SQ q24h Admission and Anticipated Discharge Date Admission Date: November 03, 2024 Supervising Physician Co-Signing Physician Notes Attending Attestation: Chart reviewed, care plan d/w GEOVANNY Reilly. I agree w/ the mead components of her documentation. CT pelvis today, in addition to right-sided pubic fractures, demonstrated b/l sacral ala fractures. This may explain some of the left-sided symptoms she is having. Await pain management consultation. 25-OH vit D level was >30. Leroy Bradley Munira seen and examined this morning. She denies any pain at rest but reports 10/10 pain whenever she tries to move her left side. She feels it is muscular related & not bone related. She denies any numbness & tingling in her LE. Physical Exam Constitutional: WD/WN, vitals as above Eyes: PERRL, conjunctivae normal, anicteric sclerae Respiratory: normal respiratory effort Cardiovascular: no LE edema Neurologic: PERRL, EOMI, accommodation nl, no face palsy, no dysarthria Psychiatric: A+Ox3, euthymic affect Results & Data Results & Data Vital Signs (Past 12 Hours) Vital Signs Temp Pulse Resp BP Pulse Ox O2 Del Method 11/06/24 11:49 36.4 C L 68 19 178/98 H 97 Room Air 11/06/24 07:42 36.5 C 60 18 183/85 H 96 Room Air PG Care Time/CCT Total # of Minutes Spent Total Time Spent with Patient: Total time spent is greater than 50% in coordination of care (as documented) at patient's floor/unit and/or counseling patient: Coding Level of Care Code 12764 SUB INP/OBS CARE 2/35MIN Diagnoses Left hip pain M25.552 Hyponatremia E87.1 Anxiety F41.9 Hypertension I10 Constipation K59.00 Pubic bone fracture S32.509A"
--- NOTE | 2024-11-06 16:09 | CT Scan Report ---
CT pelvis wo con CLINICAL HISTORY: Left hip/pelvic pain. COMPARISON STUDY: Pelvis and left hip radiographs November 03, 2024. TECHNIQUE: Axial images of the pelvis and hips were obtained without IV contrast. Sagittal and tomas l reformats were viewed. A dose lowering technique was utilized adhering to the principles of ALARA. 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 Alignment is anatomic. There are no periprosthetic fractures. Artifact from the hip arthroplasties compromises evaluation of the adjacent soft tissues. Comminuted minimally displaced bilateral sacral ala fractures are present. The appearance favors sub acute fractures. There are displaced healing right ischiopubic ring fractures. Alignment is similar t o radiographs of November 03, 2024. No additional pelvic or hip fractures are identified on this examina tion. Incidental note is made of a moderate amount of stool within the rectum. There is mild presacra l edema. No pelvic fluid collection is present. There are no suspicious osseous lesions. IMPRESSION: 1. Intact bilateral hip arthroplasties. No periprosthetic fractures. 2. Redemonstration of subacute displaced right ischiopubic ring fractures. Alignment is similar to ra diographs of November 03, 2024. 3. Bilateral sacral ala fractures, likely subacute. ACT 112: Negative or not required by law. Electronically signed by: Ilya Patel M.D. 11/06/2024 4:08 PM
[2024-11-07 09:56] LABS: Anion Gap 4.0 (3-11); Blood Urea Nitrogen 18.0 mg/dl (6-23); Calcium 8.9 mg/dl (8.6-10.3); Carbon Dioxide 31.0 mmol/L (21-32); Chloride 99.0 mmol/L (98-107); Creatinine Clr Calc Pharmacy 67.5 ml/min; Glucose 101.0 mg/dl (70-99(Fasting)); Potassium 4.2 mmol/L (3.5-5.1); Sodium 134.0 mmol/L (136-145)
--- NOTE | 2024-11-07 11:17 | Hospitalist Progress Note ---
"Date of Service November 07, 2024 Assessment & Plan (1) Left hip pain: (2) Hyponatremia: (3) Anxiety: (4) Hypertension: (5) Constipation: (6) Pubic bone fracture: Plan Pt is a very pleasant 73 yo female with a past med hx of fall 1 mo ago with R pelvis fracture managed conservatively, HTN, and anxiety who presents to the hospital on 11/03 for L hip pain making ambulation at home progressively more difficult. #L hip pain | ambulatory dysfunction Patient does have a known right pubic fracture from a fall on September 16 Hip and pelvic x-ray on arrival revealed increased displacement at the right pubic fracture Left hip/pelvic CT: no acute fx or dislocation, unremarkable appearance of left hip arthroplasty. Currently on Tylenol 1000mg TID + Tramadol 50mg PO TID + Lidocaine patch + Baclofen 5mg TID. PT/OT evaluations - unable to stand due to 10/10 pain. Steroids d/c since they were not helpful. Ibuprofen d/c since not helpful. Pain management consulted --> s/p trigger point injections 11/07. Recommended switching from Flexeril to Baclofen to help w/ muscle spasms. #Hyponatremia - improving Mild; Na trend 132 -> 134 S/p NSS 500 mL IV x 1 Clinically euvolemic on physical exam Monitor PRN #Constipation - resolved Patient reports that has been too painful to sit on the toilet due to her left hip pain BM reported on 11/05 MiraLAX daily PRN Monitor #H/o right hip replacement | h/o left hip replacement Noted #Anxiety | depression Continue hydroxyzine, buspirone PRN #HTN Continue losartan #Bladder spasms Normally on tolterodine Continue oxybutynin inpatient #HLD Continue atorvastatin Disposition: Continued stay on MedSurg VTE ppx: Lovenox 40 mg SQ q24h Admission and Anticipated Discharge Date Admission Date: November 03, 2024 Supervising Physician Co-Signing Physician Notes Attending Attestation: Chart reviewed, care plan d/w GEOVANNY Reilly. I agree w/ the mead components of her documentation. Appreciate pain management assistance. They performed trigger point injections today in the left gluteus minimus, left gluteus medius, left piriformis muscles. Hopefully this helps with her pain. Leroy Padgett MD [facility] was seen and examined this morning. SHe reports still pain in her left buttock region. Reports no improvement thus far. States she is still unable to stand due to the severity of the pain. Physical Exam Constitutional: WD/WN, vitals as above Eyes: PERRL, conjunctivae normal, anicteric sclerae ENMT: external ear and nose normal, oropharynx normal Respiratory: normal respiratory effort Neurologic: PERRL, EOMI, accommodation nl, no face palsy, no dysarthria Psychiatric: A+Ox3, euthymic affect Results & Data Results & Data Vital Signs (Past 12 Hours) Vital Signs Temp Pulse Resp BP Pulse Ox O2 Del Method 11/07/24 07:22 36.4 C L 67 17 154/87 H 96 Room Air 11/06/24 23:45 36.5 C 60 18 149/89 H 94 Room Air PG Care Time/CCT Total # of Minutes Spent Total Time Spent with Patient: Total time spent is greater than 50% in coordination of care (as documented) at patient's floor/unit and/or counseling patient: Coding Level of Care Code 66661 SUB INP/OBS CARE 2/35MIN Diagnoses Left hip pain M25.552 Hyponatremia E87.1 Anxiety F41.9 Hypertension I10 Constipation K59.00 Pubic bone fracture S32.509A"
[2024-11-07] MEDS: ROPIVACAINE 0.5% 5 MG/ML 30 ML VIAL INFIL STA (11:43)
[2024-11-07] MEDS: TRIAMCINOLONE ACET 40 MG/ML VIAL IM STA (11:43)
--- NOTE | 2024-11-07 11:59 | Pain Management Consultation ---
Date of Consultation November 07, 2024 Assessment & Plan (1) Myofascial pain on left side: * Acute muscle spasm in the left gluteus and piriformis muscle region. Recommend trigger point injections using ropivacaine and Kenalog. Risk versus benefit discussed at length with patient. She wishes to proceed. Trigger point injections were performed. Please see procedure note below * Patient endorses no benefit from cyclobenzaprine. Will discontinue this and do a trial of baclofen 5 mg p.o. 3 times daily. If patient tolerates that well can consider increasing to 10 mg and changed to as needed. * Continue with heat as needed * Okay to continue with diclofenac gel and lidocaine patch at affected area * Patient aware that she can follow outpatient in pain management as needed (2) Left hip pain: * No tenderness at this time over the trochanteric bursa. Imaging with no evidence of hardware displacement or periprosthetic fracture. Imaging unremarkable * Ambulate as tolerated * Follow-up outpatient with orthopedics as needed (3) Pubic bone fracture: * Acute right pubic rami fracture with minimal displacement identified on x-ray 10/10/2024. Continue to follow with orthopedics Encounter type: initial encounter Sublocation of pubis: superior rim Fracture type: closed Laterality: right Qualified Code(s): S32.511A - Fracture of superior rim of right pubis, initial encounter for closed fracture (4) Back pain: * Patient denies any acute back pain at this time. Lumbar spine x-ray was completed and shows severe degenerative disc disease and facet arthropathy * Nontender bilaterally on examination for facet tenderness with provocation * Continue conservative management. Back pain location: low back pain Chronicity: chronic Back pain laterality: bilateral Sciatica presence: without sciatica Qualified Code(s): M54.50 - Low back pain, unspecified; G89.29 - Other chronic pain History of Present Illness Reason for Consultation: Left hip pain Attending Physician: Leroy Padgett MD History of Present Illness Attending: Dr. Allen Ms. Dallas is a 73-year-old female that was admitted for left hip pain. Approxi-1 month ago she had a fall and had a right pelvis fracture. Imaging of the left hip shows hardware in place from previous total hip arthroplasty. No indication of displacement or further fracture. Lumbar spine x-ray shows degenerative disease and facet arthrosis with anterolisthesis of L5 on S1. Otherwise, unremarkable. Hip x-ray, pelvis x-ray, hip CT, pelvis CT unremarkable regarding musculature or hardware complication with no periprosthetic fractures. Subacute displaced right ischial pubic rami fractures and bilateral sacral jia fractures appear to be subacute as well. No significa nt effusion or tissue inflammation. Patient reports the pain started getting worse approximately 2 weeks ago. She has tried ibuprofen and Tylenol at home with no relief. She was admitted 11/03/2024 with intractable pain. In the hospital, she was trialed on cyclobenzaprine with minimal improvement, Voltaren gel, lidocaine patch, tramadol with minimal improvement. She reports the pain is aggravated by repositioning and states that she is unable to sit up or stand. She feels as though the pain is cramping in style and in her left lower buttock to her left lateral hip. She currently denies any radiculitis into the hip, thigh, or below the knee. She has difficulty lying on the left side secondary to pain with pressure at the site. She rates her pain at worst 7-8/10 and at best 5/10. Patient denies previous history of pain clinic involvement. She does have bilateral hip replacements which have been stable. Pelvis CT 11/06/[address] 11/06/2024 Hip and pelvis x-ray 11/03/2024 Lumbar spine x-ray 10/31/2024 Bone densitometry 08/02/2023 Previous intervention: Physical therapy ordered but patient unable to participate. Tramadol, NSAIDs, Tylenol, lidocaine patch, cyclobenzaprine, Voltaren gel. Patient denies bowel or bladder incontinence. No saddle anesthesia. No unusual bleeding or bruising. Patient denies any history of malignancy. Patient denies use of anticoagulants or antiplatelet agents at home. She is currently on enoxaparin 40 mg subcu daily for DVT prophylaxis while in inpatient. No other constitutional complaints Allergies Allergy/AdvReac Type Severity Reaction Status Date / Time morphine Allergy Severe nausea/severe Verified 07/28/17 12:10 sedation/resp distress vs. arrest pollen extracts Allergy Unknown ITCHY EYES Verified 07/28/17 12:10 EARS codeine AdvReac Intermediate NAUSEA Verified 07/28/17 12:10 oxycodone AdvReac Intermediate Confusion Verified 11/05/24 11:19 tramadol AdvReac Intermediate NAUSEA Verified 07/28/17 12:10 SOMETIMES erythromycin base AdvReac Unknown INSOMNIA Verified 07/28/17 12:10 HYPER Penicillins AdvReac Unknown VAGINITIS Verified 07/28/17 12:10 Home Medications Medication Instructions Recorded Confirmed Type diphenhydramine HCl 25 mg tablet 1 tab PO BID PRN Other ##0 07/28/17 11/03/24 History (Benadryl Allergy) [place] 3 2,400 mcg PO DAILY 11/03/24 11/03/24 History atorvastatin 20 mg tablet 20 mg PO DAILY 11/03/24 11/03/24 History buspirone 10 mg tablet 10 mg PO BID PRN Anxiety 11/03/24 11/03/24 History cholecalciferol (vitamin D3) 50 50 mcg PO DAILY 11/03/24 11/03/24 History mcg (2,000 unit) tablet (Vitamin D3) cyclobenzaprine 5 mg tablet 5 mg PO TID PRN Muscle Spasm 11/03/24 11/03/24 History hydroxyzine HCl 25 mg tablet 25 mg PO .Q6-8H PRN Other 11/03/24 11/03/24 History ibuprofen 200 mg tablet (Advil) 200 mg PO Q6H PRN Pain 11/03/24 11/03/24 History losartan 50 mg tablet 50 mg PO DAILY 11/03/24 11/03/24 History magnesium 250 mg tablet 250 mg PO DAILY 11/03/24 11/03/24 History methylprednisolone 4 mg tablets in 4 mg PO DIRECTED 11/03/24 11/03/24 History a dose pack tolterodine 2 mg capsule,extended 2 mg PO DAILY 11/03/24 11/03/24 History release 24 hr tramadol 50 mg tablet 50 mg PO Q4H PRN Pain 11/03/24 11/03/24 History Pain History Chief Complaint Chief Complaint: Left hip pain Patient History Social History Smoking Status: Current every day smoker Tobacco Type: Cigarettes Second Hand Exposure: Yes; Do You Dip or Chew Tobacco: No; Hx Alcohol Use: Yes Alcohol type: wine Hx Substance Use: No Preferred Language: [place] Communication Ability: Effective Nursing Director Required: No Beliefs That Will Affect Care: None Current Living Situation: Alone Feels Safe at Home: Yes Assistive Devices: Cane and Walker Physical Exam Physical Exam: Physical Exam: Constitutional: Well-developed, well-nourished, healthy-appearing, normal weight Psych: Awake, alert, and oriented 3 with normal affect and mood. Memory appears grossly intact, resting comfortably on examination Skin: No evidence of edema, erythema or skin breakdown. No rashes, lesions, ulcers, or induration noted. Musculoskeletal: Head is normocephalic and atraumatic, gait not observed as patient states that pain inhibits ambulation. Lumbar: Lordotic curve: Loss of lumbar Lordosis Range of motion is decreased with flexion away from left hip. No difficulty with flexion or extension of the hip Tenderness: Nontender over the axial midline Facet provocation: Negative bilaterally Straight leg raise: Negative bilaterally Strength: Strength is equal bilaterally with 5 out of 5 strength in all planes Sensation of lower extremities: Intact bilaterally Deep tendon reflexes: Rated at 2/4 in bilateral patellar tendons Myofascial spasm: No appreciable lumbar spasm. Patient with myofascial spasm in the gluteus medius, gluteus minimus, piriformis muscles with trigger points appreciated Greater trochanters: Nontender bilaterally Sacroiliac joints: Nontender bilaterally. Negative FADIR. Negative DEJAH. Negative compression test. Pathologic reflexes noted: None Neuro: No focal neurological deficits appreciated. Results (Pain Clinic) Diagnostic Review Other Findings: Hip/Pelvis X-Ray 11/03/24 12:43 XR hip LT 2V w pelvis CLINICAL HISTORY: previous pelvic fx, new L hip pain COMPARISON: 10/10/2024 FINDINGS: There is increased displacement at the right pubic rami fractures. No other fracture or dislocation seen. Prosthesis show no IMPRESSION: Increased displacement at the right pubic fractures. ACT 112: Negative or not required by law. Electronically signed by: William Taylor M.D. 11/03/2024 2:[address] 11/06/24 08:12 CT hip LT wo con HISTORY: 73 years-old Female left hip/pelvic pain acute left-sided hip and pelvic pain without reported trauma. COMPARISON: CT pelvis of same day, pelvis and hip radiographs 11/03/2024 TECHNIQUE: Multiple axial CT images of the left hip were obtained without IV contrast. A dose lowering technique was used consistent with the principals of ALARA. FINDINGS: Demineralized appearance of the bones. Unremarkable appearance of the left hip arthroplasty without evidence of hardware complication. No acute fracture or dislocation. No suspicious bone lesions. Nonspecific urinary bladder wall thickening. Moderate rectal fecal retention. No lymphadenopathy. Unremarkable appearance of the musculature. Please refer to the same day CT pelvis for discussion of the right-sided pelvic ring fractures. Minimal cortical angulation of the inferior left pubic ramus is likely chronic. IMPRESSION: 1. No acute fracture or dislocation. 2. Unremarkable appearance of the left hip arthroplasty. ACT 112: Negative or not required by law. The above report was generated using voice recognition software. It may contain grammatical, syntax or spelling errors. Electronically signed by: Yariel Fernandez M.D. 11/06/2024 10:[address] 11/06/24 08:12 CT pelvis wo con CLINICAL HISTORY: Left hip/pelvic pain. COMPARISON STUDY: Pelvis and left hip radiographs November 03, 2024. TECHNIQUE: Axial images of the pelvis and hips were obtained without IV contrast. Sagittal and coronal reformats were viewed. A dose lowering technique was utilized adhering to the principles of ALARA. 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 Alignment is anatomic. There are no periprosthetic fractures. Artifact from the hip arthroplasties compromises evaluation of the adjacent soft tissues. Comminuted minimally displaced bilateral sacral ala fractures are present. The appearance favors subacute fractures. There are displaced healing right ischiopubic ring fractures. Alignment is similar to radiographs of November 03, 2024. No additional pelvic or hip fractures are identified on this examination. Incidental note is made of a moderate amount of stool within the rectum. There is mild presacral edema. No pelvic fluid collection is present. There are no suspicious osseous lesions. IMPRESSION: 1. Intact bilateral hip arthroplasties. No periprosthetic fractures. 2. Redemonstration of subacute displaced right ischiopubic ring fractures. Alignment is similar to radiographs of November 03, 2024. 3. Bilateral sacral ala fractures, likely subacute. ACT 112: Negative or not required by law. Electronically signed by: Ilya Patel M.D. 11/06/2024 4:08 PM Previous Records Review Previous Records: personally reviewed by me Procedure Note Procedure: TRIGGER POINT INJECTION Provider: Alex Fox PA-C Diagnosis: Myofascial pain with spasm Medications Used: Ropivacaine 0.5% 7 ml Kenalog 1 ml (40 mg/1ml) Side/Level injected: Left gluteus minimus, left gluteus medius, left piriformis Prior to starting, the Patients diagnosis and the procedure were reviewed with the patient in detail. Possible risks and complications including infection, bleeding, damage to surrounding structures and increased pain were discussed. Alternative therapies were also reviewed. Patients questions were answered and they agreed to proceed. Informed consent was obtained. Allergies and medication list was reviewed. The patient was placed in a right lateral recumbent position. Immediately prior to starting the procedure, a ``time out was conducted with the staff and the patient where the patient was identified, proposed procedure was verified, con sent was reviewed and the proper site for the planned procedure was identified. Patient was not given any intravenous sedation and constant verbal contact was maintained throughout the procedure. On examination, no signs of skin breakdown or infection were noted at the injection site. The site was cleansed with ChloraPrep. After the application of either chloraprep, duraprep, and/or betadine (depending on patient's allergy status), three minutes time elapsed prior to the start of the procedure to reduce risk of fire. Palpation over the site produced patients typical pain. Using an 1.5 inch 25-gauge needle, the above muscles were injected in similar fashion after negative aspiration for blood with 1-2 mL of a combination of 7 mL of 0.5% ropivacaine-MPF containing 40 mg of Kenalog (1 ml)without complication. Needle was withdrawn and hemostasis noted. Patient tolerated the procedure uneventfully without complications. Surgeon: Alex Fox
[2024-11-07] MEDS: LIDOCAINE 5% 1 PATCH TD STA (12:00)
[2024-11-07] MEDS: CYCLOBENZAPRINE HCL 5 MG TAB PO SCH (12:01)
[2024-11-07] MEDS: BACLOFEN 10 MG TAB PO SCH (13:04)
[2024-11-07] MEDS: REMOVE LIDODERM PATCH SCH ×2 (21:24)
[2024-11-08 07:50] LABS: Anion Gap 5.0 (3-11); Blood Urea Nitrogen 17.0 mg/dl (6-23); Calcium 9.2 mg/dl (8.6-10.3); Carbon Dioxide 28.0 mmol/L (21-32); Chloride 100.0 mmol/L (98-107); Creatinine Clr Calc Pharmacy 75.3 ml/min; Glucose 111.0 mg/dl (70-99(Fasting)); Magnesium 2.2 mg/dl (1.7-2.4); Potassium 4.6 mmol/L (3.5-5.1); Sodium 133.0 mmol/L (136-145)
--- NOTE | 2024-11-08 09:44 | Pain Management Progress Note ---
Date of Service November 08, 2024 Assessment & Plan (1) Myofascial pain on left side: (2) Pubic bone fracture: Encounter type: initial encounter Sublocation of pubis: superior rim Fracture type: closed Laterality: right Qualified Code(s): S32.511A - Fracture of superior rim of right pubis, initial encounter for closed fracture (3) Back pain: Back pain laterality: bilateral Back pain location: low back pain Chronicity: chronic Sciatica presence: without sciatica Qualified Code(s): M 54.50 - Low back pain, unspecified; G89.29 - Other chronic pain (4) Hip pain: Plan (1) Myofascial pain on left side: * Acute muscle spasm in the left gluteus and piriformis muscle region improved since receiving trigger point injections * Continue with baclofen 5 mg p.o. 3 times daily. If patient tolerates that well can consider increasing to 10 mg and discharging with this as a as needed. * Continue with heat and ice as well as Voltaren gel and Lidoderm patch * Would recommend outpatient physical therapy with focus on myofascial release at the piriformis, gluteal muscles, IT band on the left. Would recommend iontophoresis, massage, trigger release technique, stretching * Patient can follow outpatient in pain management as needed. Patient advised that she will need to go through her primary care provider for a referral (2) Left hip pain: * Imaging with no evidence of hardware displacement or periprosthetic fracture. Imaging unremarkable * Ambulate as tolerated * Follow-up outpatient with orthopedics as needed (3) Pubic bone fracture: * Acute right pubic rami fracture with minimal displacement identified on x-ray 10/10/2024. Continue to follow with orthopedics Encounter type: initial encounter Sublocation of pubis: superior rim Fracture type: closed Laterality: right Qualified Code(s): S32.511A - Fracture of superior rim of right pubis, initial encounter for closed fracture (4) Back pain: * Patient continues to deny any acute back pain at this time. Lumbar spine x- ray was completed and shows severe degenerative disc disease and facet arthropathy * Nontender bilaterally on examination for facet tenderness with provocation * Continue conservative management. * Back pain location: low back pain Chronicity: chronic Back pain laterality: bilateral Sciatica presence: without sciatica Qualified Code(s): M54.50 - Low back pain, unspecified; G89.29 - Other chronic pain Case discussed with Dr. Allen Thank you for including us in the care of this patient. The pain clinic will sign off at this time. Please feel free to reconsult or call with any further questions. Admission and Anticipated Discharge Date Admission Date: November 03, 2024 Subjective Attending: Dr. Allen Mrs. Dallas is a 73-year-old female seen in the hospital yesterday for acute piriformis and gluteal pain on the left. Trigger point injections were performed. Patient tolerated procedure well. Today she is able to sit up and move about in the bed. She is able to sit on the edge of the bed and stand at bedside. She still has some residual spasm extending from her left buttock into her lateral left thigh. She reports that she has not been at bedside chair or walked more than a few steps secondary to fear that pain will return. Overall, she reports greater than 50% improvement in her pain since receiving the injections Physical Exam 2 Physical Exam: GENERAL: Speech and cognition is intact. Mood and affect is appropriate. Does not appear in acute distress. BACK: There is no SI joint tenderness. There is no midline or facet joint tenderness. Pain is unchanged with facet load bearing. Pain is unchanged with flexion or extension. No lumbosacral tenderness. There is no paraspinal, quadratus lumborum, piriformis, or gluteal tenderness or spasm although patient does have spasm when standing and sitting back down on the edge of the bed. SKIN: No evidence of edema, erythema or skin breakdown at site of procedure LOWER EXTREMITIES: Negative straight leg raise bilaterally. R Hip flexion +5; hip extension +5; knee extension +5; knee flexion +5; dorsiflexion +5; plantar flexion +5 L Hip flexion +5; hip extension +5; knee extension +5; knee flexion +5; dorsiflexion +5; plantar flexion +5 NEURO: Gait impaired secondary to pain. Awake, alert, and oriented x 3. Distal sensation of lower legs intact and equal bilaterally. Results (Pain Clinic) Laboratory Review Additional Comments: 11/04/24 08:47 11/08/24 07:04
[2024-11-08] MEDS: LIDOCAINE 5% 1 PATCH TD SCH (09:47)
[2024-11-08] MEDS: DICLOFENAC SOD 1% GEL 100 GM TUBE EXT PRN (09:49)
--- NOTE | 2024-11-08 15:11 | Discharge Summary ---
"Discharge Summary Date of Service November 08, 2024 Principal Dx & Hospital Course #1 = Principal Diagnosis (1) Left hip pain: (2) Hyponatremia: (3) Anxiety: (4) Hypertension: (5) Constipation: (6) Pubic bone fracture: Plan Pt is a very pleasant 73 yo female with a past med hx of fall 1 mo ago with R pelvis fracture managed conservatively, HTN, and anxiety who presents to the hospital on 11/03 for L hip pain making ambulation at home progressively more difficult. #L hip pain | ambulatory dysfunction Patient does have a known right pubic fracture from a fall on September 16 Hip and pelvic x-ray on arrival revealed increased displacement at the right pubic fracture Left hip/pelvic CT: no acute fx or dislocation, unremarkable appearance of left hip arthroplasty. Currently on Tylenol 1000mg TID + Tramadol 50mg PO TID + Lidocaine patch + Baclofen 5mg TID. -- continue @ [facility] PT/OT evaluations - per patient she told me she was able to ambualte to bathroom. Patient does live alone & was accepted @ [facility] --> she was agreeable to go. Steroids d/c since they were not helpful. Ibuprofen d/c since not helpful. Pain management consulted --> s/p trigger point injections 11/07. Recommended swit dallin from Flexeril to Baclofen to help w/ muscle spasms. 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 Discussed w/ CM & Pain management prior to dc. Admission HPI Per Admitting Provider Pt is a very pleasant 73 yo female with a past med hx of fall 1 mo ago with R pelvis fracture managed conservatively, HTN, and anxiety who presents to the hospital on 11/03 for L hip pain making ambulation at home progressively more difficult. Pt seen at bedside with family member present. Pt states that 4 weeks ago she sustained a R pelvis fracture after a fall when she was out with her dog and another dog came up behind them and tripped them. No LOC with that episode, no presyncopal symptoms. Pt states she really had minimal if any R hip pain with the injury and so it was being treated conservatively. She states that she started with PT about a week and a half ago and about 5 days after started to develop L hip pain, particularly when getting up from sitting or with hip flexion. She states she was given tramadol, which helped for 2-3 hours when taken with ibuprofen, prednisone which did not help, and Flexeril which did not provide relief for her. She states that she lives alone and does have stairs but that most things she needs are on the first floor, although she states she has actually done better with stairs than with walking around. Pt states that the pain is outer L hip and extends down to her outer left knee at times, no radiation into the buttock or back per pt today. No further falls, here due to continued issues with mobility due to persistent L hip pain. Discharge Exam Constitutional WD/WN, vitals as above Eyes PERRL, conjunctivae normal, anicteric sclerae Respiratory normal respiratory effort Neurologic PERRL, EOMI, accommodation nl, no face palsy, no dysarthria Psychiatric A+Ox3, euthymic affect Discharge Plan Discharge Items Patient Disposition: Transfer Inpatient Rehab Fac Reason For Visit: L HIP PAIN Discharge Diagnosis: left myofascial pain Condition on Discharge: Fair Activity: Resume your previous activity Non-emergency contact: Primary Care Provider and Pain Management Call non-emergency contact if: you have any medication questions, your symptoms worsen and your pain is not controlled Follow-up/Referrals: Fabiana Franks, [Physician] - Shell Kinney [Primary Care Provider] - Diet: Regular Addtl Attending Provider Instructions: Ms. Whiting, You were recently hospitalized for ongoing left buttock/hip pain. You were evaluated by pain management who did trigger point injections on 11/07/2024. With this, you experienced improvement of your symptoms. Best of luck at rehab! Marilyn Reilly PA-C Addtl Administrative Support Technician Provider Instructions: For [facility]: Pain regimen currently: Lidocaine patch daily; tramadol TID; tylenol TID; baclofen TID. Pending Studies at Discharge: No Stand-Alone Forms: My [facility] Skilled Items Patient informed of condition?: Yes DNR: No Discharge Level of Care: Acute rehab Communicable Disease: No Discharge Prognosis: Stable Lines: None Urinary Catheter: No Medications and DC Order Prescriptions: New acetaminophen [Tylenol Extra Strength] 500 mg Tablet 1,000 mg PO Q8H Qty: 6 0RF baclofen 10 mg Tablet 5 mg PO TID Qty: 60 0RF diclofenac sodium [Voltaren Arthritis Pain] 1 % Gel 2 g EXT TID PRN (Reason: left hip/butt pain) Qty: 50 0RF melatonin 3 mg Tablet 3 mg PO HS PRN (Reason: sleep) Qty: 7 0RF tramadol 50 mg Tablet 50 mg PO TID Qty: 0 0RF pantoprazole 40 mg Tablet,Delayed Release (Dr/Ec) 40 mg PO QAM Qty: 0 0RF lidocaine 5 % Adhesive Patch,Medicated 1 patch transdermal QAM Qty: 15 0RF Continued diphenhydramine HCl [Benadryl Allergy] 25 mg Tablet 1 tab PO BID PRN (Reason: Other) Qty: 0 losartan 50 mg tablet 50 mg PO DAILY tolterodine 2 mg capsule,extended release 24hr 2 mg PO DAILY atorvastatin 20 mg tablet 20 mg PO DAILY buspirone 10 mg tablet 10 mg PO BID PRN (Reason: Anxiety) hydroxyzine HCl 25 mg tablet 25 mg PO .Q6-8H PRN (Reason: Other) methylprednisolone 4 mg tablets,dose pack 4 mg PO DIRECTED magnesium 250 mg Tablet 250 mg PO DAILY cholecalciferol (vitamin D3) [Vitamin D3] 50 mcg (2,000 unit) Tablet 50 mcg PO DAILY Wiley [place] 3 2,400 mcg PO DAILY Held ibuprofen [Advil] 200 mg Tablet 200 mg PO Q6H PRN (Reason: Pain) Hold Instructions: Resume on 12/09/24. Discontinued tramadol 50 mg tablet 50 mg PO Q4H PRN (Reason: Pain) cyclobenzaprine 5 mg tablet 5 mg PO TID PRN (Reason: Muscle Spasm) Discharge Orders: Discharge Order (Routine); Ordered 11/08/24 Ordered By: Marilyn Reilly Admission Data Admit Date/Time: 11/03/24 16:56 Attending Provider: Hernandez Madison Admit Provider: Zayra Michelle Primary Care Provider: Shell Kinney Other Providers: Zayra Michelle; [id number],CAPPT; [facility] Andre Martin; Fabiana Franks; Angel Allen; Alex Fox; Sandy Jordan; Kendrick Connors [facility] Other Interventions: Discharge Summary Assessment (RN) Last Done: 11/08/24 15:16 Hospital Stay Data Consultations 11/03/24 19:55 ED Decision to Admit Routine 11/06/24 11:24 Consult Pain Management Routine Diagnostic Imagining Performed 11/06/24 08:12 CT hip LT wo con Routine CT pelvis wo con Routine Pending Results Patient Have Any Pending Studies at Discharge: No Discharge Instructions Given to Patient (Per Discharging Provider) Ms. Whiting, Alexander were recently hospitalized for ongoing left buttock/hip pain. You were evaluated by pain management who did trigger point injections on 11/07/2024. With this, you experienced improvement of your symptoms. Best of luck at rehab! Marilyn Reilly PA-C Total Time Total Time Spent Total Time Spent (In Minutes): 50 Total Time Includes: Examination of the Patient, Discharge Planning and Medication Reconciliation Coding Level of Care Code 94296 INP/OBS DISCH >30 MIN Diagnoses Left hip pain M25.552 Hyponatremia E87.1 Anxiety F41.9 Hypertension I10 Constipation K59.00 Closed fracture of superior ramus of right pubis, initial encounter S32.511A Encounter type: initial encounter Fracture type: closed Laterality: right Sublocation of pubis: superior rim"
== END 2024-11-08 17:15 | DRG 536 ==
LOC: ED 11:47 → SUATTDRO 16:56 → EDINP 16:56 → 3W 19:50